=== PATIENT | male | born 1940 | race Caucasian/White ===

== ENCOUNTER → 2017-12-01 | Outpatient (CLI) | payer MEDICARE, BC ==
[~2017-12-01] MED LIST: ACET500 PO; ALBU90OI6 INH; ASPI81CH PO; ATOR80 PO; AZIT250 PO; BETA.1TL; CLOP75 PO; GLUC500 PO; SPIRIVA RESPIMAT4 G1 IH; TIOT18 INH
== END ==
LOC: LAB EV 17:17
DX: A04.8 Other specified bacterial intestinal infections (principal)
CPT/HCPCS: 87338

== ENCOUNTER 2021-08-22 07:18 | Inpatient (IN) | payer MEDICARE, BC ==
[~2021-08-22] VITALS: Ht 180.3 cm; Wt 54.4 kg
[2021-08-22] MEDS ORDERED: IPRAT-ALBUT 0.5-3 ML (07:48)
[2021-08-22] MEDS ORDERED: Serevent Disku50 MCG (07:48)
[2021-08-22] MEDS ORDERED: AZIT250 PO (07:49)
[2021-08-22 07:50] LABS: BASOPHILS ABSOLUTE AUTO 0.06 K/mm3 (0.00-0.23); BASOPHILS PERCENT AUTO 1 % (0-2); EOSINOPHILS ABSOLUTE AUTO 0.08 K/mm3 (0.00-0.68); EOSINOPHILS PERCENT AUTO 1 % (0-6); Hematocrit 35.6 % (37.0-53.0); Hemoglobin 10.9 g/dL (13.5-17.5); IMMATURE GRAN ABSOLUTE AUTO 0.03 K/mm3 (0.00-0.10); IMMATURE GRAN PERCENT AUTO 0 % (0-1); LYMPHOCYTES ABSOLUTE AUTO 0.79 K/mm3 (0.84-5.20); LYMPHOCYTES PERCENT AUTO 11 % (21-46); MONOCYTES ABSOLUTE AUTO 0.78 K/mm3 (0.16-1.47); MONOCYTES PERCENT AUTO 11 % (4-13); Mean Corpuscular HGB 28.7 pg (26.0-34.0); Mean Corpuscular HGB Conc 30.6 g/dL (31.5-36.5); Mean Corpuscular Volume 94 fL (80-100); Mean Platelet Volume 11.1 fL (9.1-12.4); NEUTROPHILS ABSOLUTE AUTO 5.59 K/mm3 (1.96-9.15); NEUTROPHILS PERCENT AUTO 76 % (41-73); Platelet Count 296 K/mm3 (150-400); RDW Coefficient Variation 15.5 % (11.7-14.2); RDW Standard Deviation 52.8 fL (35.1-46.3); White Blood Cell Count 7.33 K/mm3 (4.00-11.30)
[2021-08-22] MEDS ORDERED: OMEP20ER PO (07:50)
[2021-08-22] MEDS ORDERED: Vitamin D1000 UNI1 PO (07:50)
[2021-08-22 08:22] LABS: Alanine Aminotransfer (ALT/SGP 15 U/L (12-78); Albumin/Globulin Ratio 0.6 (0.8-1.8); Alk Phos 99 U/L (50-136); Anion Gap 6 mmol/L (6-16); Aspartate Aminotrans (AST/SGOT 18 U/L (12-37); Bilirubin, Total 0.4 mg/dL (0.1-1.0); Blood Urea Nitrogen 16 mg/dL (8-24); Bun/Creatinine Ratio 17.8 (12.0-20.0); CO2, Blood 31 mmol/L (21-32); Calcium, Blood 9.2 mg/dL (8.5-10.1); Chloride, Blood 101 mmol/L (98-108); Glomerular Filtration Rate >60 (60-); Glucose, Blood 139 mg/dL (70-99); Potassium, Blood 3.7 mmol/L (3.5-5.5); Sodium, Blood 138 mmol/L (136-145)
[2021-08-22 08:39] LABS: Influenza A, PCR NEGATIVE (NEGATIVE); Influenza B, PCR NEGATIVE (NEGATIVE); Resp Syncytial Virus, PCR NEGATIVE (NEGATIVE)
[2021-08-22 08:59] LABS: SARS-Cov-2 (COVID-19) PCR, MMC POSITIVE (NEGATIVE)
--- NOTE | 2021-08-22 17:54 | NUR ---
PT ARRIVAL.... PT ARRIVED ON UNIT AT 1500, THE PT IS A&Ox4 BUT UNABLE TO SPEAK WELL D/T A PARALYZED VOCAL CORD PER THE PT'S . THE PT IS ON BIPAP AT 12/6 AND 35% WITH O2 SATS >90% L/S VERY DIM ON THE LEFT SIDE CLEAR ON THE UPPER AND MIDDLE RIGHT AND DIM IN THE RIGHT BASE. THE PT IS IN SR IN THE 80'S, BP IS STABLE WITH SBPs IN THE 100'S. NO SWELLING OR EDEMA NOTED ON ASSESSMENT. THE PT IS ABLE TO USE A URINAL IN THE BED. THE PT HAS DENIED ANY N/V SINCE ARRIVAL ON THE UNIT. A POWERGLIDE WAS PLACED BY THIS RN FOR IV ACCESS. THE PT HAD A STAGE 1 PRESSURE ULCER TO HIS COCCYX WITH A SMALL AREA UNBLANCHABLE, A MEPILEX WAS PLACED BY THIS RN. THE PT'S WAS CALLED TO OBTAIN A HEALTH HISTORY AND MED REC. CALL LIGHT IN REACH WILL CONTINUE TO MONITOR UNTIL REPORT IS GIVEN TO ONCOMING RN.
--- NOTE | 2021-08-22 19:30 | NUR ---
Assumed care after report recv'd assessment complete. denies needs at this time
[2021-08-23 04:02] LABS: BASOPHILS PERCENT AUTO 0 % (0-2); EOSINOPHILS PERCENT AUTO 0 % (0-6); Hematocrit 28.8 % (37.0-53.0); Hemoglobin 8.8 g/dL (13.5-17.5); IMMATURE GRAN ABSOLUTE AUTO 0.04 K/mm3 (0.00-0.10); IMMATURE GRAN PERCENT AUTO 1 % (0-1); LYMPHOCYTES ABSOLUTE AUTO 0.55 K/mm3 (0.84-5.20); LYMPHOCYTES PERCENT AUTO 7 % (21-46); MONOCYTES ABSOLUTE AUTO 0.39 K/mm3 (0.16-1.47); MONOCYTES PERCENT AUTO 5 % (4-13); Mean Corpuscular HGB 28.4 pg (26.0-34.0); Mean Corpuscular HGB Conc 30.6 g/dL (31.5-36.5); Mean Corpuscular Volume 93 fL (80-100); Mean Platelet Volume 11.1 fL (9.1-12.4); NEUTROPHILS ABSOLUTE AUTO 6.84 K/mm3 (1.96-9.15); NEUTROPHILS PERCENT AUTO 88 % (41-73); Platelet Count 300 K/mm3 (150-400); RDW Coefficient Variation 15.7 % (11.7-14.2); RDW Standard Deviation 52.1 fL (35.1-46.3); White Blood Cell Count 7.82 K/mm3 (4.00-11.30)
[2021-08-23 04:20] LABS: Albumin, Blood 2.2 g/dL (3.4-5.0); Anion Gap 4 mmol/L (6-16); Blood Urea Nitrogen 29 mg/dL (8-24); Bun/Creatinine Ratio 32.9 (12.0-20.0); CO2, Blood 32 mmol/L (21-32); Calcium, Blood 8.5 mg/dL (8.5-10.1); Chloride, Blood 102 mmol/L (98-108); Creatinine, Blood 0.88 mg/dL (0.60-1.20); Glomerular Filtration Rate >60 (60-); Glucose, Blood 116 mg/dL (70-99); Phosphorus, Blood 3.8 mg/dL (2.5-4.9); Potassium, Blood 4.3 mmol/L (3.5-5.5); Sodium, Blood 138 mmol/L (136-145)
--- NOTE | 2021-08-23 05:56 | NUR ---
Oxygen at start of shift 4L NC while eating dinner. Sats 98-100%. Placed on bipap at 2200 and began having nausea. Changed back over to NC. Meds given as ordered, once nausea resolved placed back on BIPAP for sleep. this am changed back to NC per request. Placed on 2L. Sats maintaining 96-97%. Lungs still very diminished, with exp wheezes this am. non-productive cough. At HS did not have urge to urinate and no voids since admit. bladder scan done with showing of >500 results. Encouraged to try to urinate, was able to void, post void bladder scan showed 120 left in bladder. this am states does not feel the urge to void yet. advised will give a little more time and if does not feel urge will recheck bladder scan. denies needs at this time
--- NOTE | 2021-08-23 08:43 | NUR ---
0700: SBAR FROM SANDY VAZQUEZ. PT RESTING IN ROOM ON 2L NC, VSS, SHALLOW BREATHING WITH NO DISTRESS NOTED. NS INFUSING AT 50ML/HR. URINAL AT BEDSIDE. BED IN LOW/LOCKED POSITION, PT DEMONSTRATES UNDERSTANDING OF CALL LIGHT USE AND BED ADJUSTMENT CONTROLS. PT COMMUNICATES INDEPENDENTLY USING YES/NO AND SHORT PHRASES W/ VOCAL CORD PARALYSIS AT BASELINE.
--- NOTE | 2021-08-23 12:38 | NUR ---
1240: PT OUT OF BED TO TOILET WITH 1-PERSON ASSIST. UNSTEADY GAIT BUT INDEPENDENT WEIGHT BEARING. PT TOLERATED ATTEMPT AT BOWEL MOVEMENT W/O ADVERSE EVENT. LINEN CHANGED. PT PROVIDED WITH WIPES FOR SELF CARE.
--- NOTE | 2021-08-23 16:56 | NUR ---
SHIFT SUMMARY: Pt to med w/ tele status during shift. Neuro: Pt oriented throughout shift and calm, denies pain. Resp: Pt on 2L per NC due to tachypnea when on RA up to 34/min, resolves with supplemental O2 (pt w/ chronic anemia and COPD). Flutter valve per RT. SpO2 >94% throughout shift. Cardiac: SR w/o ectopy. Flushed midline/PIV. GI/: Ate 50-100% of meals today. BM x 1, large. Recent order for stool sample, uncollected as of 1700. Voiding per urinal. Integ/MK: Mepilex remains to coccyx stage 1 PU. Pt indepenent position changes. Pt w/ minor 1-person assist when ambulating in room d/t unsteady gait. Pysch: Updated spouse Barbra x 2 during shift, answered her questions. Pt uses call light appropriately.
[2021-08-24 05:35] LABS: BASOPHILS PERCENT AUTO 0 % (0-2); EOSINOPHILS PERCENT AUTO 0 % (0-6); Hematocrit 27.9 % (37.0-53.0); Hemoglobin 8.7 g/dL (13.5-17.5); IMMATURE GRAN ABSOLUTE AUTO 0.03 K/mm3 (0.00-0.10); IMMATURE GRAN PERCENT AUTO 0 % (0-1); LYMPHOCYTES ABSOLUTE AUTO 0.72 K/mm3 (0.84-5.20); LYMPHOCYTES PERCENT AUTO 10 % (21-46); MONOCYTES ABSOLUTE AUTO 0.66 K/mm3 (0.16-1.47); MONOCYTES PERCENT AUTO 9 % (4-13); Mean Corpuscular HGB 28.8 pg (26.0-34.0); Mean Corpuscular HGB Conc 31.2 g/dL (31.5-36.5); Mean Corpuscular Volume 92 fL (80-100); NEUTROPHILS ABSOLUTE AUTO 5.66 K/mm3 (1.96-9.15); NEUTROPHILS PERCENT AUTO 80 % (41-73); Platelet Count 327 K/mm3 (150-400); RDW Coefficient Variation 15.6 % (11.7-14.2); RDW Standard Deviation 52.3 fL (35.1-46.3); Red Blood Cell Count 3.02 M/mm3 (4.30-5.90); White Blood Cell Count 7.07 K/mm3 (4.00-11.30)
--- NOTE | 2021-08-24 06:06 | NUR ---
END OF SHIFT SUMMARY: PT AOX4, VERY PLEASANT GENTLEMAN. LUNGS ARE DIMINISHED, ON CPAP MODE OVERNIGHT AAT 7L AND 30% OXYGEN; DOES USE 2L OF OXYGEN THROUGHOUT THE DAY. 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 PT STATED HE HAD RESTFUL NIGHT AND ABLE TO REPOSITION SELF INDEPDENTLY.
[2021-08-24 06:26] LABS: Alanine Aminotransfer (ALT/SGP 13 U/L (12-78); Albumin, Blood 2.3 g/dL (3.4-5.0); Albumin/Globulin Ratio 0.6 (0.8-1.8); Alk Phos 66 U/L (50-136); Anion Gap 2 mmol/L (6-16); Aspartate Aminotrans (AST/SGOT 21 U/L (12-37); Bilirubin, Total 0.2 mg/dL (0.1-1.0); Blood Urea Nitrogen 32 mg/dL (8-24); Bun/Creatinine Ratio 41.6 (12.0-20.0); CO2, Blood 34 mmol/L (21-32); Calcium, Blood 8.4 mg/dL (8.5-10.1); Chloride, Blood 105 mmol/L (98-108); Creatinine, Blood 0.77 mg/dL (0.60-1.20); Ferritin, Serum 104 ng/mL (26-388); Glomerular Filtration Rate >60 (60-); Glucose, Blood 91 mg/dL (70-99); Iron Serum 21 ug/dL (65-175); Percent Saturation 12.3 % (20.0-50.0); Potassium, Blood 4.1 mmol/L (3.5-5.5); Sodium, Blood 141 mmol/L (136-145); Total Iron Binding Capacity 171 ug/dL (250-450); Total Protein, Blood 6.3 g/dL (6.4-8.2)
[2021-08-24] MEDS ORDERED: FOLI1 PO (13:47)
[2021-08-24] MEDS ORDERED: B-1100 M1 PO (13:49)
[2021-08-24] MEDS ORDERED: PRED20 PO (13:50)
--- NOTE | 2021-08-24 13:54 | NUR ---
CARE OF PT ASSUMED AT 0700. PT AWAKE IN BED. DENIES C/O PAIN. DENIES SOB BUT STATES THAT HE FEELS IF HE IS GETTING LESS O2 THAN EARLIER. SATS 97% ON 2L VIA N/C. LUNGS ARE VERY DIMINISHED T/O. PT HAS GGOD APPETITE AND IS USING BEDSIDE URINAL. PT OOB TO CHAIR FOR LUNCH. ATTEMPTED TO WEAN O2 DOWN WHILE UP IN CHAIR. SATS DROPPED TO 83%. O2 REPLACED AT 2L. DR TILLEY NOTIFIED. HOME O2 EVAL ORDERED. PT HAS HOME O2 FOR NIGHT BUT MAY REQUIRE O2 DURING DAY AND WITH ACTIVITY. RT EVALUATING PT NOW. PT HAS ORDERS TO GO HOME. PT'S UPDATED W PT'S PERMISSION. PT AND HAPPY ABOUT DISCHARGE HOME. RX'S FAXED TO [facility].
--- NOTE | 2021-08-24 18:29 | NUR ---
PT DISCHARGED HOME AT 1710. VERBAL AND WRITTEN DC INFO GIVEN TO PT AND PT'S W CLEAR UNDERSTANDING. XARELTO SAMPLES GIVEN TO PT BY JOAN PER DR TILLEY. PT TO TAKE 10MG/DAY X 30DAYS TO PREVENT BLOOD CLOTS. OTHER RX'S FAXED TO [facility] PER PT REQUEST. PT HAS UPCOMING APPT W PCP. HOME O2 FOR DAY/ACTIVITY WAS ORDERED AND DELIVERED BY [facility]. PT SENT HOME ON 2L VIA N/C W INSTRUCTIONS THAT HE CAN TURN O2 UP TO 4L IF NEEDED. PT SENT HOME IN STABLE CONDITION IN CARE OF PT'S .
--- NOTE | 2021-08-25 08:13 | NUR ---
Per Dr. Caceres discharge appropriate. Patient does not oppose discharge. Patient discharged home to residence. Date of discharge: 08/24/2021 Date of admission: 08/22/2021 Provisional diagnosis at time of admission: Acute hypoxemic respiratory failure Final Diagnosis at time of discharge: Acute hypoxemic respiratory failure Location: Patient is discharged to residence: [address] [place] [address] Transportation provided by: Family DME Ordered: Oxygen ordered by Carla DELGADOshanker out through [facility] (patient is already on service with [facility] and using Oxygen currently) Follow-ups needed: EFM ROXANNE will contact [facility] to schedule hospital follow-up with PCP. Confirmed numbers: [phone] Provider/PCP: Dr. Steve Rader When: WITHIN 1 WEEK Specialty: N/A When: N/A Comment: Explained to patient to contact PCP if any questions regarding medication management, social service needs, and if condition worsens go to Urgent Care/ER. No barriers to discharge. Patient has a strong support network.
== END 2021-08-24 17:20 | disposition home or self-care (01) | DRG 177 ==
LOC: ER 07:18 → PCU 14:55 → ICUW 14:55
PROVIDERS: Internal Medicine Critical Care Medicine; Student in an Organized Health Care Education/Training Program; ADMIT Hospitalist
PROC: XW0DXM6 Introduction of Baricitinib into Mouth and Pharynx, External Approach, New Technology Group 6 (ICD-10-PCS; principal; 2021-08-22)
PROC: 8E0ZXY6 Isolation (ICD-10-PCS; 2021-08-22)
PROC: 5A09357 Assistance with Respiratory Ventilation, Less than 24 Consecutive Hours, Continuous Positive Airway Pressure (ICD-10-PCS; 2021-08-22)
PROC: XW033E5 Introduction of Remdesivir Anti-infective into Peripheral Vein, Percutaneous Approach, New Technology Group 5 (ICD-10-PCS; 2021-08-22)
DX: U07.1 COVID-19 (principal); J96.01 Acute respiratory failure with hypoxia; J12.82 Pneumonia due to coronavirus disease 2019; C34.90 Malignant neoplasm of unspecified part of unspecified bronchus or lung; R64 Cachexia; I73.9 Peripheral vascular disease, unspecified; D64.9 Anemia, unspecified; I27.20 Pulmonary hypertension, unspecified; I35.0 Nonrheumatic aortic (valve) stenosis; I25.10 Atherosclerotic heart disease of native coronary artery without angina pectoris; K21.9 Gastro-esophageal reflux disease without esophagitis; N20.0 Calculus of kidney; J38.00 Paralysis of vocal cords and larynx, unspecified; Z88.6 Allergy status to analgesic agent; Z90.49 Acquired absence of other specified parts of digestive tract; Z87.891 Personal history of nicotine dependence; I72.4 Aneurysm of artery of lower extremity; J43.1 Panlobular emphysema; Z79.82 Long term (current) use of aspirin; Z88.5 Allergy status to narcotic agent; Z79.899 Other long term (current) drug therapy; F41.1 Generalized anxiety disorder; Z87.11 Personal history of peptic ulcer disease; Z98.890 Other specified postprocedural states
CPT/HCPCS: 0241U; 71045; 80053; 80069; 82607; 82728; 82746; 82947; 83540; 83550; 84484; 85025; 93005; 93010; 94640; 94644; 94660; 94667; 94761; 96374; 99285-25; A9270; C9399; J0248; J0696; J1100; J1650; J2405; J2765; J2930; J7030; J7050

== ENCOUNTER → 2021-09-03 | Outpatient (CLI) | payer MEDICARE, BC ==
[~2021-09-03] MED LIST changes: +B-1100 M1 PO; +FOLI1 PO; +IPRAT-ALBUT 0.5-3 ML; +OMEP20ER PO; +PRED20 PO; +Serevent Disku50 MCG; +Vitamin D1000 UNI1 PO
[2021-09-05 12:25] LABS: Stool Occult Bld Immuno 1 Negative (NEGATIVE)
== END ==
LOC: LAB SHORT 14:30
PROVIDERS: Physician Assistant
DX: K92.1 Melena (principal)
CPT/HCPCS: 82274

== ENCOUNTER → 2022-12-07 | Outpatient (CLI) | payer MEDICARE, BC | LOC: LAB SHORT 15:35 → PLD 15:35 | DX: R23.4 Changes in skin texture (principal) | CPT/HCPCS: 88305; 88312 ==

== ENCOUNTER 2023-05-21 22:40 | Inpatient (IN) | payer MEDICARE, BC ==
[~2023-05-21] VITALS: Ht 167.6 cm; Wt 63.9 kg
[2023-05-21 22:57] LABS: PCO2 Venous 64.7 mmHg (38-42); pH Blood Venous 7.29 (7.34-7.37)
[2023-05-21 22:58] LABS: Base Excess Venous 4.2 mmol/L; Bicarbonate Venous 26.5 mmol/L (24.0-30.0)
[2023-05-21 23:00] LABS: BASOPHILS ABSOLUTE AUTO 0.09 K/mm3 (0.00-0.23); BASOPHILS PERCENT AUTO 1 % (0-2); EOSINOPHILS ABSOLUTE AUTO 0.38 K/mm3 (0.00-0.68); EOSINOPHILS PERCENT AUTO 3 % (0-6); Hematocrit 39.1 % (37.0-53.0); Hemoglobin 12.8 g/dL (13.5-17.5); IMMATURE GRAN ABSOLUTE AUTO 0.06 K/mm3 (0.00-0.10); IMMATURE GRAN PERCENT AUTO 0 % (0-1); LYMPHOCYTES PERCENT AUTO 10 % (21-46); MONOCYTES ABSOLUTE AUTO 0.97 K/mm3 (0.16-1.47); MONOCYTES PERCENT AUTO 6 % (4-13); Mean Corpuscular HGB 30.4 pg (26.0-34.0); Mean Corpuscular HGB Conc 32.7 g/dL (31.5-36.5); Mean Corpuscular Volume 93 fL (80-100); NEUTROPHILS PERCENT AUTO 80 % (41-73); Platelet Count 329 K/mm3 (150-400); RDW Standard Deviation 49.3 fL (35.1-46.3); Red Blood Cell Count 4.21 M/mm3 (4.30-5.90)
[2023-05-21 23:22] LABS: Albumin, Blood 3.3 g/dL (3.4-5.0); Albumin/Globulin Ratio 0.7 (0.8-1.8); Bilirubin, Total 0.3 mg/dL (0.1-1.0); Bun/Creatinine Ratio 18.7 (12.0-20.0); Creatinine, Blood 0.8 mg/dL (0.60-1.20); Globulin, Blood 4.5 g/dL (2.2-4.0); Potassium, Blood 3.9 mmol/L (3.5-5.5); Total Protein, Blood 7.8 g/dL (6.4-8.2)
[2023-05-21 23:48] LABS: Influenza A, PCR NEGATIVE (NEGATIVE); Influenza B, PCR NEGATIVE (NEGATIVE); Resp Syncytial Virus, PCR NEGATIVE (NEGATIVE); SARS-Cov-2 (COVID-19) PCR, MMC NEGATIVE (NEGATIVE)
[2023-05-22] VITALS (83 sets, daily range): BP systolic 67–152; BP diastolic 39–97
[2023-05-22 00:55] LABS: Base Excess Venous -1.1 mmol/L; Bicarbonate Venous 22.5 mmol/L (24.0-30.0); PCO2 Venous 61.1 mmHg (38-42); pH Blood Venous 7.24 (7.34-7.37)
[2023-05-22 02:08] LABS: Source, Urine Foley catheter
[2023-05-22 02:10] LABS: Bilirubin, Urine Neg (Neg); Blood, Urine 2+ (Neg); Glucose Qualitative, Urine Neg (Neg); Ketones, Urine Neg (Neg); Leukocyte Esterase, Urine Neg (Neg); Nitrite, Urine Neg (Neg); Protein, Urine 2+ (Neg); Specific Gravity, Urine 1.025 (1.003-1.022); Urobilinogen, Urine NORM (Normal)
[2023-05-22 02:37] LABS: Appearance, Urine Clear (Clear); Color, Urine Yellow (P-Yellow)
[2023-05-22 02:39] LABS: Bacteria Few /hpf; Granular Casts 0-2 /lpf (0); Hyaline Casts 0-2 /lpf (0-2); Red Blood Cells, Urine 0-2 /hpf (0-2); Squamous Epithelial Cells Few /hpf (Few); White Blood Cells, Urine 0-2 /hpf (0-5)
[2023-05-22 02:45] LABS: Base Excess Venous -0.5 mmol/L; Bicarbonate Venous 21.7 mmol/L (24.0-30.0); PCO2 Venous 66.5 mmHg (38-42); pH Blood Venous 7.22 (7.34-7.37)
[2023-05-22] MEDS ORDERED: PANT40 PO (03:13)
--- NOTE | 2023-05-22 05:03 | NUR ---
ADMIT TO ICU 13: PT ARRIVED TO THE UNIT AT 0129 FROM ER; PT ADMITTED INTUBATED AND SEDATED SECONDARY TO A CPOD EXACERBATION. UPON ARRIVAL PT NOT RESPONSIVE TO STIMULI OR FOLLOWING COMMANDS, PROPOFOL GTT @ 10 MCG/MIN. PT LUNG SOUNDS CLEAR THROUGHOUT, SPO2 96<. ST ON MONITOR WITH HR 100'S, CONTINUOUS DIE TRY OUT WORKER STAMPING IN PLACE. OGT IN PLACE AND ON LIS; ABD SOFT, HYPOACTIVE BOWEL SOUNDS NOTED. PT HAS SHELL PLACED IN ER THAT IS PATENT AND DRAINING TO GRAVITY; UA SENT OFF ONCE PT ARRIVED TO UNIT. SMALL AMOUNT OF BLOOD AT URETHRAL OPENING NOTED. SKIN COOL AND PALE; TEMP READING AT 95.7, WARM BLANKETS PLACED AND WILL REASSESS. PIV TO RWR AND LAC. AT THIS TIME VENT SETTINGS AC/VC 16/440/10/50% AND PROPOFOL GTT @ 15 MCG/MIN. PT IS SENSITIVE TO PROPOFOL AND WHEN TITRATED UP IN LOW DOSES PT BECOMES HYPOTENSIVE; DOLORES NOTIFIED AND ORDERS FOR FLUID BOLUS RECIEVED. PT AT BEDSIDE ONCE SETTLED; ALL QUESTIONS ANSWERED AT THIS TIME.
[2023-05-22 05:16] LABS: Base Excess Venous -1.9 mmol/L; Bicarbonate Venous 21.1 mmol/L (24.0-30.0); PCO2 Venous 62.2 mmHg (38-42); pH Blood Venous 7.23 (7.34-7.37)
[2023-05-22 05:38] LABS: BASOPHILS ABSOLUTE AUTO 0.07 K/mm3 (0.00-0.23); BASOPHILS PERCENT AUTO 1 % (0-2); EOSINOPHILS ABSOLUTE AUTO 0.02 K/mm3 (0.00-0.68); EOSINOPHILS PERCENT AUTO 0 % (0-6); Hematocrit 43.3 % (37.0-53.0); Hemoglobin 13.9 g/dL (13.5-17.5); IMMATURE GRAN ABSOLUTE AUTO 0.12 K/mm3 (0.00-0.10); IMMATURE GRAN PERCENT AUTO 1 % (0-1); LYMPHOCYTES ABSOLUTE AUTO 0.52 K/mm3 (0.84-5.20); LYMPHOCYTES PERCENT AUTO 4 % (21-46); MONOCYTES ABSOLUTE AUTO 1.76 K/mm3 (0.16-1.47); MONOCYTES PERCENT AUTO 12 % (4-13); Mean Corpuscular HGB 30.5 pg (26.0-34.0); Mean Corpuscular HGB Conc 32.1 g/dL (31.5-36.5); Mean Corpuscular Volume 95 fL (80-100); NEUTROPHILS ABSOLUTE AUTO 11.65 K/mm3 (1.96-9.15); NEUTROPHILS PERCENT AUTO 83 % (41-73); RDW Coefficient Variation 15.3 % (11.7-14.2); RDW Standard Deviation 51.8 fL (35.1-46.3); Red Blood Cell Count 4.56 M/mm3 (4.30-5.90); White Blood Cell Count 14.14 K/mm3 (4.00-11.30)
[2023-05-22 05:49] LABS: Mean Platelet Volume 11.4 fL (9.1-12.4)
[2023-05-22 05:55] LABS: Albumin, Blood 3.1 g/dL (3.4-5.0); Albumin/Globulin Ratio 0.7 (0.8-1.8); Bilirubin, Total 0.5 mg/dL (0.1-1.0); Bun/Creatinine Ratio 17.6 (12.0-20.0); Creatinine, Blood 1.08 mg/dL (0.60-1.20); Globulin, Blood 4.3 g/dL (2.2-4.0); Potassium, Blood 4.1 mmol/L (3.5-5.5); Total Protein, Blood 7.4 g/dL (6.4-8.2)
[2023-05-22 06:10] LABS: Platelet Count 294 K/mm3 (150-400)
[2023-05-22 08:58] LABS: Anti-Xa UFH, PHA Monitoring <0.10 IU/mL; International Normalized Ratio 1.15
--- NOTE | 2023-05-22 11:23 | NUR ---
PT INTUBATED AND LIGHTLY SEDATED WITH PROPOFOL. PT WILL OPEN EYE'S TO NAME, NODS YES OR NO APPROPRIATELY. MOVES ALL EXTREMITIES AND ABLE TO MOTION WITH HANDS FOR NEEDS. DID A SEDATION VACATION THIS AM BUT PLAN TO KEEP HIM INTUBATED TODAY FOR REST. PT HAS CUFF LEAK WITH ANY REPOSITIONING, RT IS MONITORING PRESSURE OF CUFF. DR. OLMEDO IN TO SEE PT THIS AM. WAS CONCERNED ABOUT SOME OF THE MEDS THAT WERE ORDERED THIS AM PT HAS TAKEN THEM IN THE PAST AND HAD ADVERSE REACTIONS. STATES ATORVASTATIN CAUSED HYPOTENSION AND XARELTO CAUSED HIS BLOOD LEVELS TO DROP WHERE HE ALMOST NEEDED A BLOOD TRANSFUSION. DR. PARTIDA AND DR. SANDHU AT BEDSIDE AND AWARE THAT MEDS WERE HELD.
--- NOTE | 2023-05-22 17:55 | NUR ---
SUMMARY PT INTUBATED AND SEDATED WITH PROPOFOL. RASS -1 TO -2. PT WILL OPEN EYE'S IF HE HEARS SOMEONE IN THE ROOM. ABLE TO MAKE HAND GESTURES OR NOD YES OR NO TO QUESTIONS. FOLLOWS COMMANDS. CALM AND COOPERATIVE. DID SEDATION VACATION TODAY BUT PT WILL STAY INTUBATED TODAY FOR REST. PT HAS PERSISTENT CUFF LEAK WITH REPOSITIONING, RT AWARE AND MONITORING PRESSURE IN CUFF. PT HAS NOT HAD ANY EPISODES OF DESATURATION AND PULLS GOOD TIDAL VOLUMES. DR. OLMEDO CONSULTED TODAY. PLACED ON HEPARIN GTT INSTEAD OF XARELTO. NO SIGN OF DISTRESS.
--- NOTE | 2023-05-22 22:25 | NUR ---
PATIENT INTUBATED AND SEDATED AWAKENS TO SLIGHT STIMULI ETT IN PLACE WITH VENT SETTING AC/VC+ 15, TV 450, PEEP 7, FIO2 40% SUCTIONING SMALL AMT CLEAR SECRETIONS. PROPOFOL 15 MCG FOR SEDATION. PATIENT ABLE TO ASSIST WITH REPOSITIONING, ABLE TO MOUTH WORDS TO MAKE NEEDS KNOWN. FALLING BACK TO SLEEP WHEN UNDISTURBED. OG IN PLACE AND CLAMPED. HEPARIN 15 UNITS/KG INFUSING PER PHARMACY. HYPOTENSION CONTINUES, KEEPING MAP >65. LOPRESSOR HELD TONIGHT.
[2023-05-23] VITALS (42 sets, daily range): BP systolic 83–121; BP diastolic 53–81
[2023-05-23 05:49] LABS: BASOPHILS ABSOLUTE AUTO 0.01 K/mm3 (0.00-0.23); BASOPHILS PERCENT AUTO 0 % (0-2); EOSINOPHILS PERCENT AUTO 0 % (0-6); Hematocrit 33.6 % (37.0-53.0); Hemoglobin 11.1 g/dL (13.5-17.5); IMMATURE GRAN ABSOLUTE AUTO 0.11 K/mm3 (0.00-0.10); IMMATURE GRAN PERCENT AUTO 1 % (0-1); LYMPHOCYTES ABSOLUTE AUTO 0.45 K/mm3 (0.84-5.20); LYMPHOCYTES PERCENT AUTO 4 % (21-46); MONOCYTES PERCENT AUTO 4 % (4-13); Mean Corpuscular HGB 30.7 pg (26.0-34.0); Mean Corpuscular Volume 93 fL (80-100); Mean Platelet Volume 12.1 fL (9.1-12.4); NEUTROPHILS ABSOLUTE AUTO 10.54 K/mm3 (1.96-9.15); NEUTROPHILS PERCENT AUTO 91 % (41-73); Platelet Count 200 K/mm3 (150-400); RDW Coefficient Variation 15.4 % (11.7-14.2); RDW Standard Deviation 51.8 fL (35.1-46.3); Red Blood Cell Count 3.61 M/mm3 (4.30-5.90); White Blood Cell Count 11.61 K/mm3 (4.00-11.30)
[2023-05-23 06:24] LABS: BASOPHILS PERCENT MAN 0 % (0-2); EOSINOPHILS PERCENT MAN 0 % (0-6); LYMPHOCYTES ABSOLUTE MAN 0.34 K/mm3 (0.84-5.20); LYMPHOCYTES PERCENT MAN 3 % (21-46); MONOCYTES ABSOLUTE MAN 0.34 K/mm3 (0.16-1.47); MONOCYTES PERCENT MAN 3 % (4-13); NEUTROPHILS ABSOLUTE MAN 10.91 K/mm3 (1.96-9.15); SEG NEUTROPHILS PERCENT MAN 94 % (41-73); TOTAL CELLS COUNTED 100
[2023-05-23 06:25] LABS: Albumin, Blood 2.6 g/dL (3.4-5.0); Albumin/Globulin Ratio 0.7 (0.8-1.8); Bilirubin, Total 0.3 mg/dL (0.1-1.0); Calcium, Blood 8.2 mg/dL (8.5-10.1); Creatinine, Blood 1.37 mg/dL (0.60-1.20); Globulin, Blood 3.9 g/dL (2.2-4.0); Magnesium, Blood 1.7 mg/dL (1.6-2.4); Phosphorus, Blood 3.1 mg/dL (2.5-4.9); Potassium, Blood 4.3 mmol/L (3.5-5.5); Total Protein, Blood 6.5 g/dL (6.4-8.2)
--- NOTE | 2023-05-23 06:36 | NUR ---
SUMMARY PATIENT REMAINS INTUBATED AND SEDATED WITH VENT AC/VC+ 15, TV 450, PEEP 7, FIO2 40%. OG REMAINS IN PLACE AND CLAMPED. SEDATED WITH PROPOFOL 15 MCG AWAKENS TO SLIGHT STIMULI, REMAINING CALM ANSWERING QUESTIONS BY MOUTHING WORDS AND ASSISTING WITH REPOSITIONING. HEPARIN DRIP CONTINUES NO CHANGES T/O NIGHT MANAGED BY PHARMACY. DOCTOR OLMEDO IN TO SEE PATIENT, VERBALIZED THAT WILL NEED TO HAVE PATIENT TO BE SEEN OUT PATIENT FOR STRESS TEST. HYPOTENSION CONTINUES
--- NOTE | 2023-05-23 08:30 | NUR ---
ASSUMED CARE: REPORT RECEIVED FROM ZEYNEP Ibrahim RN. ASSUMED CARE OF THIS PT AT APPROX 0700. ON ASSESSMENT, THE PT IS SEDATED LIGHTLY W/ PROPOFOL AT 15 MCG/KG/MIN & INTUBATED. HE RESPONDS TO VERBAL DIRECTIONS, FOLLOWS COMMMANDS & ANSWERS YES/ NO QUESTIONS. LS CLEAR T/O, PT ON VENT W/ SETTINGS: AC/VC+ 15/450/7/40% W/ O2 SATS > 92% ON AVG. MONITOR SHOWS SR W/ HR 80s, HYPOTENSIVE W/ SBP 90s, MAP > 65. OGT IN PLACE, CLAMPED. SHELL PATENT/ DRAINING YELLOW URINE - IN PLACE FOR STRICT I&O MEASUREMENTS. SKIN CONDITION OVERALL FRAGILE, ECCHYMOTIC W/ LARGE AREAS OF DEEP PURPLE BRUISING NOTED. HEPARIN INFUSING PER ORDERS. Q2H REPOSITIONING TO MAINTAIN SKIN INTEGRITY. WILL CONTINUE TO MONITOR & UPDATE NEEDED.
--- NOTE | 2023-05-23 10:45 | NUR ---
EXTUBATION: PT EXTUBATED & PLACED ON 2L NC (CONTINUOUS HOME DOSE) AT APPROX 1035. THE PT HAS BEEN ENCOURAGED TO REST VOICE/ VOCAL CORDS. HX PARALYZED VOCAL CORDS & SPEAKS IN HUSHED/ WHISPERED TONES AT BASELINE. HE HAS BEEN ABLE TO COUGH WELL & EXPECTORATE A SMALL AMNT OF WHITE FROTHY SPUTUM NOTED, PT ABLE TO SUCTION MOUTH W/ CAMERONKAUR. HE IS REQUESTING WATER, WILL COMPLETE BEDSIDE SWALLOW EVAL THIS AFTERNOON IF PT ABLE TO REMAIN A&O W/ BASELINE O2 REQUIREMENTS.
--- NOTE | 2023-05-23 17:18 | NUR ---
BEDSIDE SWALLOW EVAL: BSE COMPLETED BY SPECTACLE TRUER, TRENT, THIS EVENING. PT HAS FAILED AFTER THIRD SIP OF WATER VIA SPOON W/ COUGHING & MOD AMNTS FROTHY SPUTUM EXPECTORATED. DR BYERS HAS BEEN UPDATED ON THIS & STS TO ORDER A SPEECH THERAPY EVAL FOR THE AM.
--- NOTE | 2023-05-23 18:23 | NUR ---
SHIFT SUMMARY: NO ACUTE CHANGES SINCE PRIOR UPDATES. PT REMAINS A&O TO ALL, PLEASANT & COOPERATIVE W/ CARE. SOFT SPOKEN R/T HX PARALYZED VOCAL CORD, SPEAKS IN HUSHED/ WHISPERED TONES. LS CLEAR, PT ON HOME DOSE OF 2L NC W/ O2 SATS > 92%. MONITOR SHOWS RHYTHM ALTERNATING BETWEEN SR W/ HR 90s & AFIB W/ HR 110s, BP REMAINS STABLE DURING THIS TIME. PT NPO R/T FAILED BSE. SHELL REMAINS IN PLACE, PATENT/ DRAINING YELLOW URINE. PROVIDER UPDATED ON PT's UO BEING BORDERLINE W/ SLIGHTLY WORSENED RENAL FUNCTION NOTED ON AM LABS, DUE TO PT's CARDIAC HX, WE WILL REEVALUATE TOMORROW AM LABS PRIOR TO BEGINNING IVFs. SKIN CONDITION OVERALL INTACT, ECCHYMOTIC W/ LARGE AREAS OF DEEP PURPLE BRUISING NOTED TO EXTREMITIES. Q2H REPOSITIONING TO MAINTAIN SKIN INTEGRITY. HEPARIN INFUSING PER ORDERS, RATE INCREASED & BOLUS GIVEN PER PHARMACY AFTER LOW ANTI-XA READING THIS EVENING. WILL CONTINUE TO MONITOR & REPORT OFF TO ONCOMING RN.
--- NOTE | 2023-05-23 23:40 | NUR ---
UPDATE PT HAD HRR CHANGE; PT BACK INTO AFIB AT BEGINNING OF SHIFT W/RATE IN 130'S. BLOOD PRESSURE 83/61 WITH MAP OF 78. PT ASYMPTOMATIC. THIS RN NOTIFIED PROVIDER; ORDERS FOR 150 MG BOLUS OF AMIODARONE AND STANDARD PROTOCOL FOR AMIODARONE GTT. THIS RN IN TO START AMIO BOLUS; PT IV ACCESS NO LONGER PATENT. MULTIPLE ATTEMPTS MADE TO START A NEW PERIPHERAL IV WITH NO SUCCESS. PT ALSO ON HEPARIN GTT AND UNABLE TO DRAW LABS D/T BEING A DIFFICULT DRAW/STICK. PT NOW REFUSING LAB DRAWS D/T "TOO MANY TIMES IN TRYING" AND HIS "VEINS BEING BAD". THIS RN DISCUSSED WITH PHARMACIST, PT SWITCHED TO LOVENOX SC.
[2023-05-24] VITALS (21 sets, daily range): BP systolic 92–139; BP diastolic 56–88
[2023-05-24 03:45] LABS: BASOPHILS ABSOLUTE AUTO 0.02 K/mm3 (0.00-0.23); BASOPHILS PERCENT AUTO 0 % (0-2); EOSINOPHILS PERCENT AUTO 0 % (0-6); Hematocrit 36.8 % (37.0-53.0); IMMATURE GRAN ABSOLUTE AUTO 0.25 K/mm3 (0.00-0.10); IMMATURE GRAN PERCENT AUTO 2 % (0-1); LYMPHOCYTES ABSOLUTE AUTO 0.33 K/mm3 (0.84-5.20); LYMPHOCYTES PERCENT AUTO 2 % (21-46); MONOCYTES ABSOLUTE AUTO 1.07 K/mm3 (0.16-1.47); MONOCYTES PERCENT AUTO 7 % (4-13); Mean Corpuscular HGB 30.4 pg (26.0-34.0); Mean Corpuscular HGB Conc 32.6 g/dL (31.5-36.5); Mean Corpuscular Volume 93 fL (80-100); Mean Platelet Volume 12.2 fL (9.1-12.4); NEUTROPHILS ABSOLUTE AUTO 12.85 K/mm3 (1.96-9.15); NEUTROPHILS PERCENT AUTO 89 % (41-73); Platelet Count 224 K/mm3 (150-400); RDW Coefficient Variation 15.6 % (11.7-14.2); RDW Standard Deviation 52.5 fL (35.1-46.3); Red Blood Cell Count 3.95 M/mm3 (4.30-5.90); White Blood Cell Count 14.52 K/mm3 (4.00-11.30)
--- NOTE | 2023-05-24 05:49 | NUR ---
SHIFT SUMMARY PT A&O X4. PT ABLE TO SPEAK BUT SPEECH IN VERY SOFT. VSS; ALTHOUGH SEE PREVIOUS NURSING NOTE TO SEE PT NOTE ABOUT RHYTHM CHANGE BACK TO AFIB. AMIODARONE GTT INFUSING. PT HR REMAINS AFIB WITH RATE IN 80 - 90'S . BLOOD PRESSURES IMPROVING RANGING FROM HIGH 90'S - 1 TEENS; SEE VITALS CHARTED. PT AFEBRILE, REMAINS ON 2 L O2 VIA NC AND TOLERATING THIS WELL. REMAINS FREE OF CP OR PRESSURE, DENIES DIZZINESS OR LIGHTHEADNESS. PT DENIES SOB. PT STILL HAVING OCCASSIONAL COUGHING, PT SUCTIONING INDEPENDENTLY. PT DOES REPORT THAT AT TIMES "IT FEELS LIKE SPIT OR SOMETHING IS STUCK" AND PT HAS A HARD TIME COUGHING IT UP. PT ABLE TO REPOSITION INDEPENDENTLY. PT PARTICIPATING MORE IN CARE; PT COMPLETED MOST OF HS CARE INDEPENDENTLY WITH ASSISTANCE TO SET UP OTHERWISE DID WELL. NO BM THIS SHIFT. SHELL IN PLACE AND DRAINING YELLOW URINE TO GRAVITY; 350 MLS OUT THIS SHIFT. WILL UPDATE ONCOMING RN. PT DID ALLOW FOR AM LAB DRAW.
--- NOTE | 2023-05-24 08:50 | NUR ---
ASSUMED CARE: REPORT RECEIVED FROM WILBERT Smith RN. ASSUMED CARE OF THIS PT AT APPROX 0700. ON ASSESSMENT, THE PT IS AWAKE, A&O TO ALL. SPEAKING IN HUSHED TONES WHICH IS HIS BASELINE R/T HX PARALYZED VOCAL CORD. HE DENIES PAIN AT THIS TIME. LS CLEAR, DIM IN BASES. PT ON BASELINE 2L NC W/ O2 SATS > 95% ON AVG. OCCASIONAL MOIST COUGH W/ THIN WHITE FROTHY SPUTUM NOTED. MONITOR SHOWS AFIB W/ HR 80-100s, BP STABLE. PT NPO PENDING ST EVAL & TX THIS AM, HYPOACTIVE BT. SHELL PATENT/ DRAINING YELLOW URINE, PLAN TO REMOVE THIS SHIFT. SKIN CONDITION OVERALL FRAGILE, ECCHYMOTIC. LARGE AREAS OF DEEP PURPLE BRUISING NOTED TO PT's EXTREMITIES AT PIV & VENIPUNCTURE SITES. Q2H REPOSITIONING TO MAINTAIN SKIN INTEGRITY. WILL CONTINUE TO MONITOR & UPDATE NEEDED.
[2023-05-24 09:08] LABS: Bun/Creatinine Ratio 34.3 (12.0-20.0); Calcium, Blood 8.6 mg/dL (8.5-10.1); Creatinine, Blood 1.05 mg/dL (0.60-1.20); Phosphorus, Blood 2.5 mg/dL (2.5-4.9); Potassium, Blood 4.1 mmol/L (3.5-5.5)
--- NOTE | 2023-05-24 11:00 | NUR ---
DR BYERS / DR ALVARADO: PROVIDER HAS SEEN PT & UPDATED PT's , ZAIDA ON PLAN OF CARE THIS AM. THE PT HAS FAILED A SPEECH THERAPY EVAL & BEEN MADE NPO. BECAUSE OF NUTRITIONAL REQUIREMENTS R/T END-STAGE COPD & CURRENT ILLNESS, IT HAS BEEN DECIDED THAT THE PT SHOULD HAVE A DOBHOFF FEEDING TUBE PLACED & BEGIN ON TUBE FEEDS TODAY. ELECTRIC MOTOR TESTER CONSULTED FOR TUBE FEEDING MANAGEMENT. DR ALVARADO AT BEDSIDE THIS AM & THIS RN HAS UPDATED HIM ON POC PER DR BYERS. HE HAS NO CHANGES TO MAKE AT THIS TIME.
--- NOTE | 2023-05-24 11:50 | NUR ---
Supportive visit this AM to establish rapport. Pt resting in bed on O2 via NC. Pt appears dyspneic and mildly anxious. Pt appears cachectic and frail. Pt's voice soft and difficulat to understand. Pt's reports voice being soft is due to vocal cord being paralyzed. Listened as Barbra reports she and Pt having 4 sons. One son lives local and the rest out of area. Pt needing power glide placement. Kept visit brief with Pt and spouse agreeable for this RN to F/U at a later time. Plan: Advanced Care Planning Palliative Care will remain available
--- NOTE | 2023-05-24 14:40 | NUR ---
DOBHOFF PLACEMENT: THIS RN AT BEDSIDE TO PLACE DOBHOFF PER PROVIDER ORDERS FOR ENTERAL NUTRITION REQUIREMENTS AFTER FAILED SPEECH EVAL THIS AM. DOBHOFF PLACED TO LEFT NARE W/ NO RESISTANCE NOTED. THE PT IS ABLE TO SWALLOW WHEN PROMPTED & THE TUBE IS EASILY ADVANCED. CHEST XR COMPLETED AT BEDSIDE, PROVIDER HAS EVALUATED & STS TO ADVANCE THE DOBHOFF APPROX 4 INCHES. CURRENT PLACEMENT IS AT 65 CM DEPTH, ADVANCED TO 75 CM DEPTH PER PROVIDER. THE DOBHOFF HAS BEEN RESECURED BY THIS RN & GUIDEWIRE REMOVED. THE PT STS THAT THE TUBE IS NOW MORE COMFORTABLE & HAS NO COMPLAINTS. WILL INITIATE TUBE FEEDS ORDERED BY CONSULTING BLOWING WEASAND.
--- NOTE | 2023-05-24 16:00 | NUR ---
TUBE FEEDINGS: TUBE FEEDS INITIATED PER GMAT TUTOR ORDERS. JEVITY 1.2 INFUSING AT STARTING RATE OF 25 ML/HR, TO BE ADVANCED BY 10 ML/HR AT APPROX 0000 TONIGHT. PT SHOWING NO S/SX INTOLERANCE AT THIS TIME, HAS BEEN EDUCATED TO INFORM THIS RN IF NAUSEA OR GI SYMPTOMS ARISE.
--- NOTE | 2023-05-24 17:25 | NUR ---
TRANSFER TO PCU: REPORT GIVEN TO TREVOR Flood RN TO ASSUME CARE IN PCU. AT APPROX 1720, THE PT HAS BEEN TRANSFERRED VIA BED TO PCU-20 BY THIS RN & EDILBERTO Flynn, DHIRAJ. VSS. ALL PT BELONGINGS & CHART HAVE TRANSFERRED OVER W/ PT AT THAT TIME. HIS , ZAIDA, HAS BEEN AT BEDSIDE & AWARE OF TRANSFER.
--- NOTE | 2023-05-24 17:54 | NUR ---
PATIENT ARRIVAL TO PCU AT 1725, USED SLIDE SHEET TO TRANSFER. ZAIDA AT BEDSIDE. PERRLA. VERY SOFT SPOKEN SPEECH. DENIES NUMBNESS/TINGLING. VITAL SIGNS STABLE. TELE SHOWING AFIB WITH HR 90-110'S. BP STABLE. AMIO GTT INFUSING PER EMAR. PPP. DENIES CHEST PAIN/PRESSURE/PALPITATIONS. ON 2L NASAL CANNULA SATING MID 90'S. LUNGS SOUNDING CLEAR IN UPPER LOBES AND COARSE IN BILATERAL LOWER LOBES. DENIES SOB. STATES HIS CHEST IS SORE FROM "BREATHING TO HARD". DENIES COUGH AT THIS TIME. EVEN AND UNLABORED RESPIRATIONS. COMPLAINS OF SLIGHT ABDOMINAL SORNESS THAT HAS BEEN A ONGOING ISSUE PRIOR TO HOSPITAL ADMISSION. BOWEL TONES PRESENT. NPO. DOBHOFF IN PLACE. TUBE FEEDING AT 25 ML/HR AT THIS TIME WITH 30ML Q4 WATER FLUSHES. TUBE FEEDING TO ADVANCE TO 35 ML/HR AT 0000. ORAL CARE COMPLETED. BRUISING TO BILATERAL ARMS. FLOATING ARMS AND LEGS AT THIS TIME. PATIENT AND ORIENTED TO PCU UNIT. CALL LIGHT IN REACH. TELE CONFIRMED WITH MAKEUP SALES ADVISOR. PATIENT DENIES NEEDS AT THIS TIME.
[2023-05-25 03:25] VITALS: BP 149/99
[2023-05-25 06:24] LABS: Bun/Creatinine Ratio 37.4 (12.0-20.0); Calcium, Blood 9.1 mg/dL (8.5-10.1); Creatinine, Blood 1.07 mg/dL (0.60-1.20); Magnesium, Blood 2.6 mg/dL (1.6-2.4); Phosphorus, Blood 2.7 mg/dL (2.5-4.9); Potassium, Blood 4.2 mmol/L (3.5-5.5)
[2023-05-25 08:00] VITALS: BP 130/81
[2023-05-25 10:03] LABS: BASOPHILS ABSOLUTE AUTO 0.01 K/mm3 (0.00-0.23); BASOPHILS PERCENT AUTO 0 % (0-2); EOSINOPHILS PERCENT AUTO 0 % (0-6); Hematocrit 37.7 % (37.0-53.0); IMMATURE GRAN ABSOLUTE AUTO 0.12 K/mm3 (0.00-0.10); IMMATURE GRAN PERCENT AUTO 1 % (0-1); LYMPHOCYTES ABSOLUTE AUTO 0.22 K/mm3 (0.84-5.20); LYMPHOCYTES PERCENT AUTO 2 % (21-46); MONOCYTES ABSOLUTE AUTO 0.53 K/mm3 (0.16-1.47); MONOCYTES PERCENT AUTO 6 % (4-13); Mean Corpuscular HGB 30.4 pg (26.0-34.0); Mean Corpuscular HGB Conc 31.8 g/dL (31.5-36.5); Mean Corpuscular Volume 95 fL (80-100); Mean Platelet Volume 12.5 fL (9.1-12.4); NEUTROPHILS ABSOLUTE AUTO 8.63 K/mm3 (1.96-9.15); NEUTROPHILS PERCENT AUTO 91 % (41-73); Platelet Count 231 K/mm3 (150-400); RDW Coefficient Variation 15.8 % (11.7-14.2); RDW Standard Deviation 54.7 fL (35.1-46.3); Red Blood Cell Count 3.95 M/mm3 (4.30-5.90); White Blood Cell Count 9.51 K/mm3 (4.00-11.30)
[2023-05-25 10:21] LABS: BAND PERCENT MAN 1 % (0-8); BASOPHILS PERCENT MAN 0 % (0-2); EOSINOPHILS PERCENT MAN 0 % (0-6); LYMPHOCYTES ABSOLUTE MAN 0.28 K/mm3 (0.84-5.20); LYMPHOCYTES PERCENT MAN 3 % (21-46); MONOCYTES ABSOLUTE MAN 0.66 K/mm3 (0.16-1.47); MONOCYTES PERCENT MAN 7 % (4-13); NEUTROPHILS ABSOLUTE MAN 8.55 K/mm3 (1.96-9.15); SEG NEUTROPHILS PERCENT MAN 89 % (41-73); TOTAL CELLS COUNTED 100
--- NOTE | 2023-05-25 10:38 | NUR ---
0800 ASSUMED CARE OF PATIENT. PATIENT AWAKE A/O. MOVE EXTREMETIES HOWEVER IS WEAK T/O AND HAVING ABD DISCOMFORT. OT TO SEE PT EARLY THIS AM AND PT BECAME NAUSEA'S WITH ACTIVITY. PATIENT HAS 3 PIV TO RIGHT FORARM. PT LOWEST IV ON RIGHT FA DC TO DUE LEAKING AND PAIN WITH FLUSH. PATIENT HAS DOBHOFF TO LEFT NARE WITH TUBEFEEDING GOING AT 40CC/HR. DISCUSSING WITH DR AND MODEL ENGINE MECHANIC ABOUT CONCERN FOR INCREASING THE TUBEFEEDING AT THIS TIME. PATIENT HAS DECREASED LUNG SOUNDS TO RIGHT LUNG SIGNIFICANTLY MORE THAN LEFT LOBE WHICH ALSO HAS SLIGHT CRACKLES IS LEFT BASE OF LUNGS. PATIENT HAS TENDER ABD TO PALPATION OVER UPPER LEFT AND RIGHT QUAD. BOWELTONES ARE HYPERACTIVE T/O. NO STOOL AT THIS TIME. PPP NO EDEMA TO NOTE AFEBRILE BP STABLE HOWEVER THIS AM WITH ACTIVITY PULSE UP TO 120-130 AFIB.
[2023-05-25 12:13] VITALS: BP 126/97
--- NOTE | 2023-05-25 13:35 | NUR ---
NOON UPDATE PATIENT HAS BEEN SITTING UP TILTED SIDE TO SIDE BY STAFF FOR REPOSITIONING. PATIENT STILL COMPLAINS OF ABD. PAIN. CONSENSES IS THAT PATIENT IS CONSTIPATED. HIS FREE WATER FLUSHES WERE INCREASED, ZOFRAN WAS GIVEN TO HIM AGAIN AT 1200 FOR NAUSEA FEELING AND COOL CLOTH TO HIS NECK. PATIENT OTHER MASTERSON VITALS ARE PULSE TACHYCARDIC ESPECIALLY WITH ACTIVITY. AFEBRILE. BP STABLE. LUNGS ARE CLEAR T/O AND PULSE IS STRONG PPPX4 EXT. PATIENT HAS VOIDED IN URINAL A FEW TIMES YELLOW URINE OUT. PT/OT WORKED WITH PT FOR ALMOST 40 MIN AND GOT HIM UP TO BSC AND SAT TO TRY AND HAVE A BM BUT ONLY FLATTULANCE HAS OCCURED. PT RESTING POST ACTIVITY.
--- NOTE | 2023-05-25 15:49 | NUR ---
UPDATE SPOKE WITH DR BYERS ABOUT PT'S CONCERN FOR AIRHUNGER "DON'T FEEL LIKE I CAN GET ENOUGH AIR" PT IS OXYGENATING AT 95% ON 2LNC PULSE AFIB LOW 100'S BP STABLE. DR BYERS ORDERED BIPAP PRN IF STAFF AND PT FEEL LIKE HE NEEDS ADDED SUPPORT OR PEEP. PT WAS IN AGREEMENT. RT TO BEDSIDE GIVING BREATHING TX, THERE WAS INSPIRATORY SQUEEKS TO LEFT UPPER LOBE AND VERY DIMINISHED LUNG SOUNDS ON THE RIGHT LOBES. CONTINUEING TO MONITOR PT.
[2023-05-25 16:00] VITALS: BP 129/85
--- NOTE | 2023-05-25 18:06 | NUR ---
END OF SHIFT NOTES: PATIENT HAS HAD A SLOW PRODUCTIVE DAY. HE WAS ABLE TO GET OUT OF BED WITH PT/OT AND USE THE BEDSIDE COMMODE. THEY STATED ONE PERSON STAND BY ASSIST WITH WALKER TO AMBULATE. PATIENT STATES HE IS EASILY SOB TODAY. BIPAP IS PRN FOR NIGHTS IF NEEDED OTHERWISE HE REMAINS ON 2L NC OXYGENATING AT 95%. PATIENT HAS USED THE URINAL TO VOID WITHOUT DIFFICULTY. HE HAS THE DOBBHOFF IN PLACE WITH JEVITY 1.2 CONTINUEOUS AT 40ML/HR WITH 120 FREE WATER FLUSHES Q 4 HR. TUBING CHANGED THIS AFTERNOON. PULSE IS STILL LOW 100'S TO 120 RATE AFIB. SBP IS 130'S/70'S... HOLDING WELL. TKO IVF IS RUNNING INTO POWERGLIDE RIGHT UPPER FA. LOWER FA ON RIGHT IV IS SL LOCKED. JON BEEN BY BEDSIDE MOST OF THE DAY. NO NEW CHANGES AT THIS TIME. WILL GIVE REPORT TO NEXT ONCOMING SHIFT.
[2023-05-25 21:16] VITALS: BP 110/71
[2023-05-26 00:30] VITALS: BP 108/74
[2023-05-26 04:23] VITALS: BP 115/85
--- NOTE | 2023-05-26 06:42 | NUR ---
SHIFT SUMMARY PATIENT ALERT AND ORIENTED X4. MEDICATED PER EMAR FOR ABDOMINAL PAIN AND NAUSEA. NPO WITH TUBE FEED RUNNING THROUGH DOBHOFF. ON ROOM AIR. VITAL SIGNS STABLE. NO ACUTE ISSUES NOTED OVERNIGHT. WILL CONTINUE TO MONITOR. CALL LIGHT WITHIN REACH.
[2023-05-26 08:34] VITALS: BP 110/80
[2023-05-26 09:04] LABS: BASOPHILS PERCENT AUTO 0 % (0-2); EOSINOPHILS PERCENT AUTO 0 % (0-6); Hematocrit 34.9 % (37.0-53.0); IMMATURE GRAN ABSOLUTE AUTO 0.07 K/mm3 (0.00-0.10); IMMATURE GRAN PERCENT AUTO 1 % (0-1); LYMPHOCYTES ABSOLUTE AUTO 0.27 K/mm3 (0.84-5.20); LYMPHOCYTES PERCENT AUTO 3 % (21-46); MONOCYTES ABSOLUTE AUTO 0.67 K/mm3 (0.16-1.47); MONOCYTES PERCENT AUTO 8 % (4-13); Mean Corpuscular HGB 30.1 pg (26.0-34.0); Mean Corpuscular HGB Conc 31.5 g/dL (31.5-36.5); Mean Corpuscular Volume 96 fL (80-100); NEUTROPHILS ABSOLUTE AUTO 7.12 K/mm3 (1.96-9.15); NEUTROPHILS PERCENT AUTO 88 % (41-73); Platelet Count 202 K/mm3 (150-400); RDW Coefficient Variation 15.6 % (11.7-14.2); RDW Standard Deviation 53.4 fL (35.1-46.3); Red Blood Cell Count 3.65 M/mm3 (4.30-5.90); White Blood Cell Count 8.13 K/mm3 (4.00-11.30)
[2023-05-26 09:24] LABS: BASOPHILS PERCENT MAN 0 % (0-2); EOSINOPHILS PERCENT MAN 0 % (0-6); LYMPHOCYTES ABSOLUTE MAN 0.24 K/mm3 (0.84-5.20); LYMPHOCYTES PERCENT MAN 3 % (21-46); MONOCYTES PERCENT MAN 5 % (4-13); NEUTROPHILS ABSOLUTE MAN 7.47 K/mm3 (1.96-9.15); SEG NEUTROPHILS PERCENT MAN 92 % (41-73); TOTAL CELLS COUNTED 100
[2023-05-26 09:33] LABS: Bun/Creatinine Ratio 52.4 (12.0-20.0); Calcium, Blood 8.9 mg/dL (8.5-10.1); Creatinine, Blood 0.92 mg/dL (0.60-1.20); Potassium, Blood 4.6 mmol/L (3.5-5.5)
[2023-05-26 11:13] VITALS: BP 146/101
--- NOTE | 2023-05-26 12:00 | NUR ---
The pt is really exhausted after all the morning activity. He got up to the recliner this morning, and after 1.5 hours then went for a swallow study in imaging. His is at the bedside. Pt states that the swallow study didn't go very well. Waiting for report for confirmation. Pt back to bed, requested bipap as he feels that it is a lot of effort just to breathe. Resting more comfortably he said with bipap, and lying on his left side.
--- NOTE | 2023-05-26 15:02 | NUR ---
Dr. Vargas here to round. Family is at the bedside. Noted order for increased water flush from Dr. Henderson. Adjusted at this time per order. Pt was assisted up to BSC and was able to pass gas and void. Bowel care given per prn orders. Pt states abdomen a little bit better after using BSC, but still not comfortable.
--- NOTE | 2023-05-26 16:41 | NUR ---
Spoke with [facility] [place] and discussed case. Pt had modified barrium swallow study today and recommendations are for Pt to remain NPO. Pt and family are considering options regarding PEG tube placement. Pt resting in bed wearing CPAP. Pt appears significantly weak, frail, and cachetic. Pt does not attempt to engage in conversation. Pt's spouse Barbra and grandchildren at bedside. Offered supportive visit and discussed options Pt is facing. Listened as spouse reports being unsure what Pt will decide. Pt does not engage in conversation to indicate direction he is leaning. Spouse does express concerns regarding whether anesthesiologist would be agreeable as anesthesiologists have decline procedures for Pt in the past. Continued therapeutic listeng. Discussed the importance of one reflecting on their goals values, and quality of life. Continued supportive visit. Family agreeable for continued PC visits. Spoke with Primary RN Dorothy and discussed case. Palliative Care will remain available
--- NOTE | 2023-05-26 17:26 | NUR ---
Pt has been up to bedside commode twice since receiving the suppository for bowel care. He has been wearing the bipap in bed and during the activity. Frequent repositioning today has improved the skin noted to be reddened on his buttocks this morning. Skin remains intact. Mepilex placed to protect from shearing. Floating heels off of bed with pillow to prevent pressure.
[2023-05-26 19:49] VITALS: BP 121/79
[2023-05-27] VITALS (7 sets, daily range): BP systolic 97–131; BP diastolic 66–89
[2023-05-27 04:12] LABS: BASOPHILS ABSOLUTE AUTO 0.02 K/mm3 (0.00-0.23); BASOPHILS PERCENT AUTO 0 % (0-2); EOSINOPHILS PERCENT AUTO 0 % (0-6); Hematocrit 35.9 % (37.0-53.0); Hemoglobin 11.5 g/dL (13.5-17.5); IMMATURE GRAN PERCENT AUTO 1 % (0-1); LYMPHOCYTES ABSOLUTE AUTO 0.43 K/mm3 (0.84-5.20); LYMPHOCYTES PERCENT AUTO 3 % (21-46); MONOCYTES ABSOLUTE AUTO 1.46 K/mm3 (0.16-1.47); MONOCYTES PERCENT AUTO 11 % (4-13); Mean Corpuscular HGB 30.5 pg (26.0-34.0); Mean Corpuscular Volume 95 fL (80-100); Mean Platelet Volume 11.9 fL (9.1-12.4); NEUTROPHILS ABSOLUTE AUTO 11.03 K/mm3 (1.96-9.15); NEUTROPHILS PERCENT AUTO 85 % (41-73); NRBC ABSOLUTE 0.02 K/mm3 (0.00-0.02); NRBC Auto 0.2 /100 WBC (0.0-0.2); Platelet Count 230 K/mm3 (150-400); RDW Coefficient Variation 15.5 % (11.7-14.2); RDW Standard Deviation 53.1 fL (35.1-46.3); Red Blood Cell Count 3.77 M/mm3 (4.30-5.90); White Blood Cell Count 13.04 K/mm3 (4.00-11.30)
[2023-05-27 05:39] LABS: Albumin, Blood 2.9 g/dL (3.4-5.0); Albumin/Globulin Ratio 0.8 (0.8-1.8); Bilirubin, Total 0.3 mg/dL (0.1-1.0); Bun/Creatinine Ratio 45.8 (12.0-20.0); Calcium, Blood 9.3 mg/dL (8.5-10.1); Creatinine, Blood 0.94 mg/dL (0.60-1.20); Globulin, Blood 3.6 g/dL (2.2-4.0); Potassium, Blood 4.2 mmol/L (3.5-5.5); Total Protein, Blood 6.5 g/dL (6.4-8.2)
--- NOTE | 2023-05-27 06:52 | NUR ---
SHIFT SUMMARY PATIENT ALERT AND ORIENTED X4, STAND BY ASSIST TO THE BEDSIDE COMMODE. MEDICATED PER EMAR FOR HEAD ACHE AND NAUSEA. WORE BIPAP OVERNIGHT, BREATHING TREATMENTS PER RT FOR EPISODES OF SHORTNESS OF BREATH. VITAL SIGNS STABLE. DOBHOFF PATENT AND INFUSING. WILL CONTINUE TO MONITOR. CALL LIGHT WITHIN REACH.
--- NOTE | 2023-05-27 07:31 | NUR ---
Bedside report from SANDY Anthony. The pt wore the bipap all night last night, on 2 l/min. Lung sounds remain extremely diminished, almost inaudible particularly on the right side. Declined removing the CPAP at this time for oral care, denture placement and break from the mask. He is not in distress/discomfort except for headache 07/27 and abdominal pain 07/27 which he seems to be fine with. States that the Tylenol helped him. No more BMs over night, but did say he is passing gas. Tube feeding via dobhoff ongoing at goal rate. Edema noted of the left elbow and bilaterally ankles, increased from yesterday. elevated legs on pillows and heels floated to avoid pressure on mattress. Barbra is at bedside.
--- NOTE | 2023-05-27 10:17 | NUR ---
Therapist Vadim told me that the pt was exhausted after minimal activity with her session. Pt told me just after that he wanted to go on the bipap. He said at that point also that he WOULD NOT WANT TO BE ON A VENTILATOR if his breathing were to worsen to that pointm. His Barbra was at the bedside. PT put on bipap to rest. Notified palliative care nurse Steve of pt's conversation and condition today.
--- NOTE | 2023-05-27 10:38 | NUR ---
Palliative care RN Steve here. Barbra is at bedside.
--- NOTE | 2023-05-27 11:32 | NUR ---
Pt resting in bed and on BIPAP. Pt appears weak and frail. Pt responds by shaking his head yes and no. Pt's spouse Barbra at bedside. Engaged in therapeutic conversation to consider hospice. Educated on disease process including trajectory. Educated on hospice philosophy. Pt and spouse do not respond or give this RN any input on thoughts regarding hospice. Discussed code status. Educated on life sustaing treatments including risks and implications to CPR. Primary RN Dorothy at bedside. Pt indicated to Dorothy he does not want intubation but does want CPR. Discussed how CPR and intubation goes hand in hand. Encouraged Pt and spouse to ask questions with both reporting no questions at this time. Spoke with Dr Vargas and discussed case. Palliative Care will remain available for supportive and therapeutic visits.
--- NOTE | 2023-05-27 14:41 | NUR ---
After conversation between speech therapist and the pt, pt states he is going to take some time to think about his options, namely ongoing treatment and NPO vs. hospice and being able to focus on comfort. Dobhoff securement device was removed, skin care dose and it was replaced. Insertion marker is 77 cm. Pt said he would like to be back on BIPAP for his work of breathing. Self oral care completed, pt repositioned with assistance to the left side and lights dimmed.
--- NOTE | 2023-05-27 14:45 | NUR ---
Call to Pt's Barbra to ask her to bring home trelegy when she returns to hospital.
[2023-05-28 05:18] VITALS: BP 95/57
[2023-05-28 05:56] LABS: BASOPHILS ABSOLUTE AUTO 0.01 K/mm3 (0.00-0.23); BASOPHILS PERCENT AUTO 0 % (0-2); EOSINOPHILS PERCENT AUTO 0 % (0-6); Hematocrit 34.1 % (37.0-53.0); Hemoglobin 10.9 g/dL (13.5-17.5); IMMATURE GRAN ABSOLUTE AUTO 0.09 K/mm3 (0.00-0.10); IMMATURE GRAN PERCENT AUTO 1 % (0-1); LYMPHOCYTES ABSOLUTE AUTO 0.43 K/mm3 (0.84-5.20); LYMPHOCYTES PERCENT AUTO 3 % (21-46); MONOCYTES ABSOLUTE AUTO 1.31 K/mm3 (0.16-1.47); MONOCYTES PERCENT AUTO 10 % (4-13); Mean Corpuscular HGB 30.2 pg (26.0-34.0); Mean Corpuscular Volume 95 fL (80-100); Mean Platelet Volume 12.4 fL (9.1-12.4); NEUTROPHILS ABSOLUTE AUTO 11.09 K/mm3 (1.96-9.15); NEUTROPHILS PERCENT AUTO 86 % (41-73); NRBC ABSOLUTE 0.02 K/mm3 (0.00-0.02); NRBC Auto 0.2 /100 WBC (0.0-0.2); Platelet Count 199 K/mm3 (150-400); RDW Coefficient Variation 15.3 % (11.7-14.2); RDW Standard Deviation 51.8 fL (35.1-46.3); Red Blood Cell Count 3.61 M/mm3 (4.30-5.90); White Blood Cell Count 12.93 K/mm3 (4.00-11.30)
[2023-05-28 06:24] LABS: Bun/Creatinine Ratio 41.2 (12.0-20.0); Calcium, Blood 8.9 mg/dL (8.5-10.1); Creatinine, Blood 0.9 mg/dL (0.60-1.20); Potassium, Blood 4.5 mmol/L (3.5-5.5)
--- NOTE | 2023-05-28 06:28 | NUR ---
SHIFT SUMMARY PATIENT ALERT AND ORIENTED X4. MEDICATED PER EMAR FOR HEADACHE. HAD NO COMPLAINTS OF CHEST PAIN OR SHORTNESS OF BREATH. WORE HOME TRILOGY OVERNIGHT. BLOOD PRESSURE HYPOTENSIVE, HELD [address] CHAVIS. HEART RATE CONTROLLED. WILL CONTINUE TO MONITOR. CALL LIGHT WITHIN REACH.
[2023-05-28 07:42] VITALS: BP 101/69
[2023-05-28 11:38] VITALS: BP 110/72
--- NOTE | 2023-05-28 17:18 | NUR ---
UPDATE PT CONTINUES TO BE ALERT AND ORIENTED. BP STABLE. HR HAS BEEN AFIB IN THE 80'S-90'S. PT HAS BEEN ON BIPAP ALMOST ALL SHIFT WITH SATS >90%. PT REPORTS FEELING SHORT OF BREATH MOST OF SHIFT. TF RUNNING PER ORDERS. ORDERS VERIFIED WITH DR. ALVARADO THIS AM. PT REPORTED NAUSEA THIS AM THAT HAS IMPROVED. PT HAD SMALL BM THIS SHIFT. PT REPOSITIONED Q2H AND MORE OFTEN NEEDED. AT BEDSIDE AT TIMES THROUGHOUT SHIFT. PT AND HAD QUESTIONS ABOUT HOSPICE AND HOWIE WITH PALLIATIVE CARE WAS IN TO ANSWER QUESTIONS. STATUS CHANGED TO [facility]. REPORT GIVEN TO TRENA DELGADO ON MEDICAL FLOOR. PT TO BE TAKEN UP VIA BED
--- NOTE | 2023-05-28 17:52 | NUR ---
Pt arrived to [facility] via bed from [facility], report obtained from Jessika RN, lots of family in room. pt on bipap at this time, settled in room, call light in reach.
[2023-05-28 19:38] VITALS: BP 115/68
--- NOTE | 2023-05-29 04:32 | NUR ---
SHIFT SUMMARY PATIENT IS ALERT AND ORIENTED. PATIENT HAS HAD NO ACUTE EVENTS THIS SHIFT. VITAL SIGNS REVIEWED. PATIENT HAS BEEN ON BIPAP ALL SHIFT SATTING OVER 95 PERCENT. PATIENT HAS REQUESTED BREATHING TREATMENTS BY RT THIS SHIFT. PATIENT HAS NOT COMPLAINED OF PAIN, NAUSEA OR VOMITTING THIS SHIFT. BED IN LOCKED AND LOWEST POSITION. CALL LIGHT IN PLACE. WILL MONITOR UNTIL SHIFT CHANGE.
[2023-05-29 04:51] LABS: BASOPHILS ABSOLUTE AUTO 0.01 K/mm3 (0.00-0.23); BASOPHILS PERCENT AUTO 0 % (0-2); EOSINOPHILS ABSOLUTE AUTO 0.02 K/mm3 (0.00-0.68); EOSINOPHILS PERCENT AUTO 0 % (0-6); Hematocrit 32.1 % (37.0-53.0); Hemoglobin 10.4 g/dL (13.5-17.5); IMMATURE GRAN ABSOLUTE AUTO 0.11 K/mm3 (0.00-0.10); IMMATURE GRAN PERCENT AUTO 1 % (0-1); LYMPHOCYTES ABSOLUTE AUTO 0.36 K/mm3 (0.84-5.20); LYMPHOCYTES PERCENT AUTO 3 % (21-46); MONOCYTES PERCENT AUTO 10 % (4-13); Mean Corpuscular HGB 30.4 pg (26.0-34.0); Mean Corpuscular HGB Conc 32.4 g/dL (31.5-36.5); Mean Corpuscular Volume 94 fL (80-100); Mean Platelet Volume 12.4 fL (9.1-12.4); NEUTROPHILS ABSOLUTE AUTO 9.99 K/mm3 (1.96-9.15); NEUTROPHILS PERCENT AUTO 85 % (41-73); Platelet Count 204 K/mm3 (150-400); RDW Coefficient Variation 15.5 % (11.7-14.2); RDW Standard Deviation 52.3 fL (35.1-46.3); Red Blood Cell Count 3.42 M/mm3 (4.30-5.90); White Blood Cell Count 11.69 K/mm3 (4.00-11.30)
[2023-05-29 05:19] VITALS: BP 109/76
[2023-05-29 06:04] LABS: Bun/Creatinine Ratio 40.2 (12.0-20.0); Calcium, Blood 8.6 mg/dL (8.5-10.1); Creatinine, Blood 1.02 mg/dL (0.60-1.20); Potassium, Blood 4.3 mmol/L (3.5-5.5)
[2023-05-29 07:46] VITALS: BP 122/70
--- NOTE | 2023-05-29 09:00 | NUR ---
Pt laying in bed with bipap in place, awake a/ox4, pleasant and cooperative with care, follows commands well, states his stomach is a bit nauseated, zofran given with relief, lungs are very dim t/o, resp even and unlabored at rest, has no activity tolerance, occ cough noted, hrirr, tele in place running afib per monitor, see strip, no edema noted, ppp+1, cap refill <3sec, vs stable, afebrile, iv site is power glied to mai site is clear and patent, btx4, hypoactive, voids via urinal, skin frail but intact, maew, geronimo, call light in reach.
--- NOTE | 2023-05-29 15:25 | NUR ---
spoke with pt about being turned, he said no, he can turn himself. instructed need to take pressure off coccyx, he said he understood. call light in reach.
--- NOTE | 2023-05-29 18:03 | NUR ---
pt got up to bsc and tolerated it to void, and family has been in room, throughout the day, pt was cleaned up and gown/pjs changed, he is chewing on ice chips throughout the day. he was changed to comfort care status. no further changes this shift. has wore bipap all day. call light in reach.
--- NOTE | 2023-05-29 18:07 | NUR ---
Medication adjusted for comfort getting more anxious so is . She is upset that pt in same gown for four days. pt may be strugglin with memory and details. This television writer witnessed a full bed bath yesterday. pt has a flag aon morphine due to history of addiction in the . Will review with pt to see if that is still a concer and wants to pass with sobriety.
--- NOTE | 2023-05-30 04:53 | NUR ---
COMFORT CARE SHIFT SUMMARY PATIENT IS ALERT AND ORIENTED. PATIENT HAS HAD NO ACUTE EVENTS THIS SHIFT. PATIENT IS SOFT SPOKEN AND WRITES DOWN HIS THOUGHTS AND WANTS. PATIENT WAS HAVING A HARD TIME BREATHING BUT RT HAS BEEN OCCUPIED IN ED. ATIVAN GIVEN FOR ANXIETY PATIENT IS ALERGIC TO MORPHINE. PATIENT REQUESTED TYLENOL FOR HEADACHE EARLIER IN SHIFT. BED IN LOCKED AND LOWEST POSITION. CALL LIGHT IN PLACE. WILL MONITOR AND RELAY CONCERNS TO DAY SHIFT.
--- NOTE | 2023-05-30 12:00 | NUR ---
OG TUBE REMOVED OG TUBE REMOVED AT APPROX 08:20 PER ORDERS, PT TOLERATED WELL.
[2023-05-30] MEDS ORDERED: Ativan1 MG PO (16:07)
--- NOTE | 2023-05-30 16:48 | NUR ---
DISCHARGE NOTE PT DISCHARGED HOME AT APPROX 16:35. PT AND FAMILY PROVIDED WITH VERBAL AND WRITEN INSTRUCTIONS AND REPORTED UNDERSTANDING. PT A&OX4, STABLE, AMB W/ MINIMAL ASSIST, VOIDING, TOLERTING LITTLE PO INTAKE, AND DENIED PAIN. BELONGINGS WERE RETURNED AND PT AND FAMILY ESCOURTED OUT VIA W/C BY JACE ALEXANDRE.
== END 2023-05-30 16:44 | disposition hospice, home (50) | DRG 208 ==
LOC: ER 22:40 → ICUE 22:41 → PCU 22:41 → ICUE 05-22 00:04 → PCU 05-22 00:04 → ICUE 05-22 01:20 → PCU 05-24 17:29 → MEDS 05-28 17:47 → ENPENDDIS 05-30 15:45 → MEDS 05-30 16:44
PROVIDERS: Family Medicine; Internal Medicine; Internal Medicine Critical Care Medicine; Student in an Organized Health Care Education/Training Program; ADMIT Internal Medicine
PROC: 5A09357 Assistance with Respiratory Ventilation, Less than 24 Consecutive Hours, Continuous Positive Airway Pressure (ICD-10-PCS; 2023-05-21)
PROC: 0BH17EZ Insertion of Endotracheal Airway into Trachea, Via Natural or Artificial Opening (ICD-10-PCS; 2023-05-21)
PROC: 5A1945Z Respiratory Ventilation, 24-96 Consecutive Hours (ICD-10-PCS; principal; 2023-05-22)
PROC: B24BZZZ Ultrasonography of Heart with Aorta (ICD-10-PCS; 2023-05-22)
DX: J96.21 Acute and chronic respiratory failure with hypoxia (principal); I21.4 Non-ST elevation (NSTEMI) myocardial infarction; E43 Unspecified severe protein-calorie malnutrition; J18.9 Pneumonia, unspecified organism; I50.32 Chronic diastolic (congestive) heart failure; E87.29 Other acidosis; J44.1 Chronic obstructive pulmonary disease with (acute) exacerbation; Z51.5 Encounter for palliative care; Z66 Do not resuscitate; J44.0 Chronic obstructive pulmonary disease with (acute) lower respiratory infection; J96.22 Acute and chronic respiratory failure with hypercapnia; J43.9 Emphysema, unspecified; I73.9 Peripheral vascular disease, unspecified; E78.5 Hyperlipidemia, unspecified; I95.9 Hypotension, unspecified; F17.210 Nicotine dependence, cigarettes, uncomplicated; D63.8 Anemia in other chronic diseases classified elsewhere; I25.5 Ischemic cardiomyopathy; I11.0 Hypertensive heart disease with heart failure; I35.0 Nonrheumatic aortic (valve) stenosis; I25.10 Atherosclerotic heart disease of native coronary artery without angina pectoris; R13.10 Dysphagia, unspecified; I48.91 Unspecified atrial fibrillation; Z88.5 Allergy status to narcotic agent; Z99.81 Dependence on supplemental oxygen; Z88.8 Allergy status to other drugs, medicaments and biological substances; Z79.82 Long term (current) use of aspirin; Z79.52 Long term (current) use of systemic steroids; Z95.820 Peripheral vascular angioplasty status with implants and grafts; Z85.828 Personal history of other malignant neoplasm of skin; Z85.118 Personal history of other malignant neoplasm of bronchus and lung; Z11.52 Encounter for screening for COVID-19; Z92.21 Personal history of antineoplastic chemotherapy; Z92.3 Personal history of irradiation; Z78.1 Physical restraint status; Z68.20 Body mass index [BMI] 20.0-20.9, adult
CPT/HCPCS: 0241U; 31500; 36415; 71045; 74018; 74230; 80048; 80053; 81001; 82803; 82947; 83735; 83880; 84100; 84145; 84484; 85025; 85520; 85610; 85730; 87070; 87077; 87186; 87205; 92526; 92610; 92611; 93005; 93010; 93306; 94002; 94003; 94640; 94660; 94664; 94760; 94762; 96365; 96368; 96375; 97110; 97162; 97165; 97530; 99291-25; A9270; C1751; C9113; J0282; J0456; J0696; J1644; J1650; J1940; J2060; J2405; J2704; J2930; J3010; J7030; J7040; J7050; J7060